=== PATIENT | female | born 1980 | race Caucasian/White ===

== ENCOUNTER 2024-08-01 20:59 | Emergency (ER) | payer MEDICAID, SELFPAY ==
[2024-08-01 21:00] VITALS: BP 177/123; PULSE 93; RESP 18; TEMP 36.6; O2SAT 99; BMI 28.7
[2024-08-01 21:01] VITALS: BP 177/123; PULSE 93; RESP 18; TEMP 36.6; O2SAT 99
[2024-08-01] MEDS: Lidocaine 1% (20 ml mdv) 20 ML Vial INFILT (22:56)
--- NOTE | 2024-08-02 00:41 | EDS_ITS ---
HPI History of Present Illness Chief Complaint: Upper Extremity Injury Informant: patient Narrative Narrative: [id number] female tender swollen area left pad of the thumb that started yesterday. Unknown etiology no injury, but she does say that she chews/bites the skin away from the side of her nails. This seems to start on the pad of the thumb, but more toward the ulnar side. No systemic symptoms. States she went to ER at [facility] for this yesterday, they did not think it needed to be opened and put her on doxycycline and she states it is no better but worse now and severely painful. PFSH PFSH Medical History no medical history Home Medications ?Medication ?Instructions ?Recorded ?Last Taken ?Type hydrocodone-acetaminophen 5-325mg 1 tab PO Q4H PRN PRN Pain 1 day #6 08/02/24 Unknown Rx 5mg-325mg TABLETS Allergy/AdvReac Type Severity Reaction Status Date / Time Penicillins Allergy Mild Unknown Verified 08/01/24 20:59 Social History Smoking Status: Current every day smoker tobacco type: cigarettes ROS ROS ED Constitutional Constitutional ED: Denies chills or fever(s) Musculoskeletal Musculoskeletal: Reports extremity pain; Denies neck pain Integumentary Reports abscess; Denies Abrasions or rash Neurologic Neurologic: Denies paresthesias or weakness EXAM Physical Exam Const Vital Signs: 08/01/24 21:00 08/01/24 21:01 Temperature 98 F 98 F Temperature Source Temporal Oral Pulse Rate 93 93 Respiratory Rate 18 18 Blood Pressure 177/123 H 177/123 H Blood Pressure Mean 141 141 Pulse Ox 99 99 Oxygen Delivery Method Room Air Room Air Positive well nourished and well developed General Appearance ED: well developed and NAD Neck full ROM and supple Back/Spine normal ROM and normal to inspection Extremity Extremity Narrative: Left thumb: Pad is extremely tender and firm/swollen, little more prominent on the ulnar aspect where there is whitish discolored area about 0.5 cm in diameter that she states is the place where it hurts the most and appears to potentially be the nidus of the infection. There is no spontaneous discharge from anywhere. The paronychial folds appear normal but are mildly tender as is the entire distal phalanx. Limited range of motion due to pain. Nail appears to be intact. There is nail clubbing. Neuro oriented x3, no focal motor deficits and no sensory deficits noted Sensorium / Orientation: alert Psych mental status grossly normal and thought process normal Skin Rashes: no rashes MDM MDM MDM Narrative Medical decision making narrative: I believe this is consistent with an early felon. I discussed this with Dr. Cook who is on for Ortho, and he agrees with having the patient follow-up after I perform digital block and incision and drainage. States it may be reasonable to do a localized I&D rather than lateral dissection of the entire pad. That ended up being fruitful see the procedure note, patient was given a prescription for some analgesics, she is already on doxycycline since she is allergic to penicillins and does not know if she could tolerate cephalexin or not, so I think she is good to continue the Doxy. She will follow-up with Dr. Cook and continue to do 3 times daily warm soapy soaks in the meantime. Procedures Other Procedures Procedure(s): Digital block: A total of 9.5 cc of plain 1% lidocaine was used with isopropanol prep in various areas around the base of the left thumb including the volar aspect in order to provide excellent anesthesia distally. No complications tolerated well. Felon incision and drainage: After informed consent from the patient, left thumb after blocked successfully above, initially using 18-gauge needle to stab the whitish area, partially to test her sensation and also to test to see if there was purulent discharge. This was successful, the patient did not have any pain with this and there was purulent discharge. Therefore made a small incision with a #11 blade, followed by blunt probing and the loculation of the area. It was irrigated with sterile saline with peroxide, and I probed further toward the paronychia fold to ensure there is no further collection there, and a little toward the radial aspect, but it was felt that dissecting all the way over was not necessary as the abscess cavity was entered and seemed completely drained. Tolerated well, dressed with bacitracin, no complications. Discharge Plan Triage Chief Complaint: Upper Extremity Injury ED Provider: Alexandre Kowalski Dx/Rx/DC Orders Clinical Impression: Felon of finger of left hand Instructions: ED Abscess Incision And Drainage Prescriptions: New hydrocodone-acetaminophen 5-325 mg tablet 1 tab PO Q4H PRN PRN (Reason: Pain) 1 Days Qty: 6 0RF Primary Care Provider: Torri Mahan Referrals: Torri Mahan MD [Primary Care Provider] - Manuel Cook DO [Med Staff - Active Staff] - As soon as possible Activity Restrictions/Additional Instructions: Continue the antibiotic you are already prescribed until completed. Perform warm/hot soapy soaks 3 times daily for 15 minutes at a time until there is no more drainage from the wound. Place a clean gauze dressing on it after each one with some antibiotic ointment. Print Language: [place] Disposition Disposition: Home, Self Care
== END 2024-08-02 00:59 | disposition home or self-care (01) ==
PROVIDERS: Emergency Provider Emergency Medicine; PCP Internal Medicine; Visit Provider Emergency Medicine
DX: L03.012 Cellulitis of left finger (principal); F17.210 Nicotine dependence, cigarettes, uncomplicated
CPT/HCPCS: 99282